=== PATIENT | female | born 1965 | race Caucasian/White ===

== ENCOUNTER → 2017-02-02 | Outpatient (CLI) | payer MEDICARE, BC ==
--- NOTE | 2017-02-02 16:17 | CARD ---
APPROVED REPORT EXAM: Two-dimensional and M-mode echocardiogram with Doppler and color Doppler. Other Information Quality : Good INDICATION Murmur 2D DIMENSIONS RVDd3.1 (2.9-3.5cm)Left Atrium(2D)3.6 (1.6-4.0cm) IVSd1.0 (0.7-1.1cm)Aortic Root(2D)2.8 (2.0-3.7cm) LVDd4.9 (3.9-5.9cm)LVOT Diameter2.1 (1.8-2.4cm) PWd1.0 (0.7-1.1cm)LVDs3.0 (2.5-4.0cm) FS (%) 30.0 %SV79.3 ml LVEF(%)60.0 (>50%) Aortic Valve AoV Peak Aleksandar.160.1cm/sAoV VTI34.3cm AO Peak GR.10.3mmHgLVOT Peak Aleksandar.106.6cm/s LVOT VTI 25.20cmAO Mean GR.5mmHg JEVON (VMAX)2.43ep3AVL (VTI)2.64cm2 Mitral Valve MV E Mskopbdm95.3cm/sMV DECEL [id number] MV A Uryblxpz47.0cm/sMV [id number] E/A Ratio1.0MVA (PHT)3.57cm2 TDI E/Lateral E'4.9E/Medial E'7.6 Tricuspid Valve TR P. Rbycffec686aw/sRAP KAYXBQOH1odDw TR Peak Gr.93nqToWQAS70hzRg Pulmonary Vein S1 Acabijmt08.7cm/sD2 Jvgrddjh63.7cm/s PVa yzjumxjp90clff LEFT VENTRICLE The left ventricle is normal size. There is normal left ventricular wall thickness. The left ventricu lar systolic function is normal. The Ejection Fraction is 55-60%. There is normal LV segmental wall m otion. Transmitral Doppler flow pattern is Grade I-abnormal relaxation pattern. RIGHT VENTRICLE The right ventricle is normal size. The right ventricular systolic function is normal. ATRIA The left atrium size is normal. The right atrium size is normal. The interatrial septum is intact wit h no evidence for an atrial septal defect or patent foramen ovale as noted on 2-D or Doppler imaging. AORTIC VALVE The aortic valve is normal in structure and function. Doppler and Color Flow revealed no significant aortic regurgitation. There is no significant aortic valvular stenosis. MITRAL VALVE The mitral valve is normal in structure and function. There is no evidence of mitral valve prolapse. There is no mitral valve stenosis. Doppler and Color-flow revealed trace mitral regurgitation. TRICUSPID VALVE The tricuspid valve is normal in structure and function. Doppler and Color Flow revealed trace to mil d tricuspid regurgitation. There is mild pulmonary hypertension. The PA pressure was estimated at 32 mmHg. There is no tricuspid valve stenosis. PULMONIC VALVE The pulmonary valve is normal in structure and function. Doppler and Color Flow revealed mild pulmoni c valvular regurgitation. There is no pulmonic valvular stenosis. GREAT VESSELS The aortic root is normal in size. The ascending aorta is normal in size. The IVC is normal in size a nd collapses >50% with inspiration. PERICARDIAL EFFUSION There is no evidence of significant pericardial effusion. Critical Notification Critical Value: No <Conclusion> The left ventricular systolic function is normal. The Ejection Fraction is 55-60%. There is normal LV segmental wall motion. Transmitral Doppler flow pattern is Grade I-abnormal relaxation pattern. Trace mitral regurgitation. Trace to mild tricuspid regurgitation. There is mild pulmonary hypertension. The PA pressure was estimated at 32 mmHg. There is no evidence of significant pericardial effusion.
== END | disposition home or self-care (01) ==
LOC: ECHO 09:20
PROVIDERS: ATTEND Internal Medicine Cardiovascular Disease
DX: I08.1 Rheumatic disorders of both mitral and tricuspid valves (principal)
CPT/HCPCS: 93306

== ENCOUNTER → 2020-10-15 | Outpatient (CLI) | payer MEDICARE, BC ==
--- NOTE | 2020-10-16 09:17 | SLEEP ---
DATE OF STUDY: 10/15/2020 OBJECTIVE: The patient is a 55-year-old female with previous diagnosis of sleep apnea, who now wants to try CPAP again. Height 5 feet 3 inches, weight 205 pounds, body mass index 36, [place] sleep score 17. INTERPRETATION: Sleep architecture is characterized by a sleep efficiency of 91% across the 6.3 hours of recording time. Sleep onset latency is 6.5 minutes. Stage volumes are appropriate for age. Respiratory monitoring shows a total of 72 events for an overall apnea-hypopnea index of 11.5 events per hour of sleep. Prior to treatment, the apnea-hypopnea index is 32.4 events per hour of sleep. The patient is started on CPAP and at a setting of 12 cm, the apnea-hypopnea index falls to 2.6 events per hour of sleep. No cardiac arrhythmias or periodic limb movements of sleep are observed. IMPRESSION: Abnormal polysomnogram showing severe obstructive sleep apnea and hypopnea, treatable on CPAP at 12 cm using a Resp[employer]ics DreamWear Full Face Mask, small size. RECOMMENDATIONS: 1. My office will set this CPAP setting up for the patient. 2. The patient should avoid sedatives and alcohol and pursue weight loss. 3. She will follow up in my clinic as scheduled. Thank you for letting me help with the patient's care. NICK DAVIS MD DR: DINA/troy JOB#: [id number] / [id number] Mary Alves MD
== END ==
LOC: SLPLAB 17:36
PROVIDERS: ATTEND Psychiatry & Neurology Neurology with Special Qualifications in Child Neurology
DX: G47.33 Obstructive sleep apnea (adult) (pediatric) (principal)
CPT/HCPCS: 95810